=== PATIENT | female | born 1995 | race African-American/Black ===

== ENCOUNTER 2021-12-21 17:22 | Observation (INO) | payer OTHER ==
[2021-12-21] MEDS ORDERED: Morphine 4 MG/ML VIAL ONE (18:25)
[2021-12-21] MEDS ORDERED: PROPOFOL 20 ML ONE (18:48)
[2021-12-21] MEDS ORDERED: Ondansetron PF 4 MG/2 ML Vial ONE (18:49)
[2021-12-21] MEDS ORDERED: Dexamethasone 4 mg/ml Vial ONE (18:49)
[2021-12-21] MEDS ORDERED: Lidocaine 1% PF 5 ML VIAL ONE (18:49)
[2021-12-21] MEDS ORDERED: Rocuronium Bromide 10 MG/ML (10ML VIAL) ONE (18:49)
[2021-12-21] MEDS ORDERED: Fentanyl 100 MCG/2 ML VIAL ONE (18:49)
[2021-12-21] MEDS ORDERED: Albumin 5% 250 ML ONE (18:50)
[2021-12-21] MEDS ORDERED: Ketamine 50 MG/ML (10ML VIAL) ONE (18:51)
[2021-12-21] MEDS ORDERED: Doxycycline 100 MG CAP PO SCH (19:00)
[2021-12-21] MEDS ORDERED: Methylergonovine 0.2 MG/ML VIAL ONE (19:07)
[2021-12-21 19:38] LABS: SARS-CoV-2 NAA Rapid Test Not Detected (NotDetected)
[2021-12-21] MEDS ORDERED: PHENYLEPHRINE-NS 100 MCG/ML 10 ML SYRINGE ONE (19:45)
[2021-12-21] MEDS ORDERED: Tranexamic Acid 1,000 MG/10 ML VIAL ONE (20:01)
[2021-12-21] MEDS ORDERED: Meperidine HCl/PF 25 MG/ML VIAL ONE (20:24)
[2021-12-21 20:29] LABS: Mean Corpuscular HGB CONC 32.3 g/dL (32.0-36.0); Mean Corpuscular Hemoglobin 27.1 pg (27.0-33.0); Mean Corpuscular Volume 84.2 fl (81.6-98.3); Mean Platelet Volume 9.5 fl (7.4-10.4); Platelet Count 279 10x3/uL (150-450); RBC Distribution Width 14.8 % (11.5-14.5); Red Blood Cell (RBC) Count 2.21 10x6/uL (3.90-5.03); White Blood Cell (WBC) Count 16.8 10x3/uL (3.5-10.5)
[2021-12-21] MEDS ORDERED: CEFAZOLIN 2 GM in Sodium Chloride 0.9% 100 ML IVPB SCH (20:45)
[2021-12-21] MEDS ORDERED: Ondansetron ODT 4 MG TAB PO PRN (21:34)
[2021-12-21] MEDS ORDERED: Acetaminophen 325 MG TAB PO PRN (21:34)
[2021-12-21] MEDS ORDERED: Ibuprofen 800 MG TAB PO PRN (21:36)
[2021-12-21] MEDS ORDERED: diphenhydrAMINE 50 MG/ML VIAL IVP PRN (21:37)
[2021-12-21] MEDS ORDERED: CEFAZOLIN 2 GM VIAL ONE (21:45)
[2021-12-22 06:26] LABS: Hemoglobin 8.7 g/dL (12.0-15.5); Mean Corpuscular HGB CONC 34.1 g/dL (32.0-36.0); Mean Corpuscular Hemoglobin 28.3 pg (27.0-33.0); Mean Corpuscular Volume 83.1 fl (81.6-98.3); Mean Platelet Volume 9.5 fl (7.4-10.4); Platelet Count 254 10x3/uL (150-450); RBC Distribution Width 15.1 % (11.5-14.5); Red Blood Cell (RBC) Count 3.07 10x6/uL (3.90-5.03); White Blood Cell (WBC) Count 14.8 10x3/uL (3.5-10.5)
[2021-12-22 08:16] VITALS: BP 113/63; TEMP 98.2
== END 2021-12-22 08:37 | disposition home or self-care (01) ==
LOC: CSHERS 17:22 → CSHPP 19:28
PROVIDERS: ADMIT Student in an Organized Health Care Education/Training Program; ATTEND Student in an Organized Health Care Education/Training Program
PROC: 10D17ZZ Extraction of Products of Conception, Retained, Via Natural or Artificial Opening (ICD-10-PCS; principal; 2021-12-21)
DX: O03.4 Incomplete spontaneous abortion without complication (principal); D64.9 Anemia, unspecified; Z20.822 Contact with and (suspected) exposure to COVID-19
CPT/HCPCS: 36415; 36430; 85027; 86850; 86900; 86901; 88305; G0378; J0690; J1100; J2175; J2210; J2270; J2405; J2704; J3010; P9016; P9045; U0002

== ENCOUNTER 2024-04-16 16:39 | Emergency (ER) | payer OTHER ==
[2024-04-17 01:35] LABS: Chlam.trachomatis by PCR,Urine Not Detected (NotDetected); GC N.gonorrhoeae PCR,UrineVOID Not Detected (NotDetected)
== END 2024-04-16 17:52 | disposition home or self-care (01) ==
LOC: CSHERS 16:39
DX: N76.0 Acute vaginitis (principal); Z87.891 Personal history of nicotine dependence
CPT/HCPCS: 87480; 87491; 87510; 87591; 87660; 99283